=== PATIENT | male | born 1965 | race Two or more races ===

== ENCOUNTER 2023-01-12 10:02 | Emergency (ER) | payer MEDICAID ==
[~2023-01-12] VITALS: Ht 180.3 cm; Wt 108.3 kg
[2023-01-12 15:05] VITALS: BP 140/80
[2023-01-12] MEDS ORDERED: ACYCLOVIR 400 MG TAB PO ONE (15:30)
[2023-01-12] MEDS ORDERED: ACYC-161 PO (15:41)
== END 2023-01-12 15:56 | disposition home or self-care (01) ==
LOC: ER 10:02
DX: B02.9 Zoster without complications (principal); E11.9 Type 2 diabetes mellitus without complications
CPT/HCPCS: 82962

== ENCOUNTER 2024-10-08 18:54 | Emergency (ER) | payer MEDICAID ==
[~2024-10-08] VITALS: Ht 180.3 cm; Wt 104.7 kg
[~2024-10-08 18:54] MED LIST: ACYC400T16 PO
--- NOTE | 2024-10-08 19:57 | ED.PDOC ---
History of Present Illness HPI Comments 59 y/o M, with a Hx of obesity and DM, presents with c/o laceration to 3rd digit on right hand, today. Patient comments on cutting his hand with a [place] cutter by accident, earlier, today. He denies any weakness, numbness, tingling, lightheadedness, or other associated symptoms or modifiers at this time. Chief Complaint: Laceration Time Seen by MD: 19:20 Primary Care Provider: SANTIAGO Reviewed Notes: Nurses Notes, Medications, Allergies Allergies: Coded Allergies: NO KNOWN ALLERGIES (Unverified , 01/12/23) Home Meds Active Scripts Acyclovir (ZOVIRAX TABLET) 400 Mg Tb, 2 TAB PO 5XD for 7 Days, #70 TAB 0 Refills Pharmacy to use 800mg tablet p.o. 5 times a day for 7 days. Dispense sufficient quantity Prov:TRENA PEREZ [employer]NA[employer] 01/12/23 Information Source: Patient Mode of Arrival: Ambulatory Severity: Moderate Timing: Hours Duration: Since onset Prehospital treatment: None Past Medical History PAST MEDICAL HISTORY: DM Past Medical History (Other): obesity Surgical History: Denies all surgeries Family History Family History: Reviewed,noncontributory to illness Social History Smoker: Non-Smoker Alcohol: Denies ETOH Use Drugs: Denies Drug Use Lives In: Home Integumetry: reports: laceration ( 3rd digit on right hand ) All Other Systems: Reviewed and Negative (negative unless otherwise stated above or in HPI) Physical Exam General Appearance: No Apparent Distress, Obese HEENT: Normal ENT Inspection, Pharynx Normal, TMs Normal Neck: Full Range of Motion, Non-Tender, Normal, Normal Inspection Respiratory: Chest Non-Tender, Lungs Clear, No Accessory Muscle Use, No Respiratory Distress, Normal Breath Sounds Cardiovascular: No Edema, No JVD, No Murmur, No Gallop, Normal Peripheral Pulses, Regular Rate/Rhythm Breast Exam: Deferred Gastrointestinal: No Organomegaly, Non Tender, No Pulsatile Mass, Normal Bowel Sounds, Soft Genitalia: Deferred Pelvic: Deferred Rectal: Deferred Extremities: No calf tenderness, Normal capillary refill, Normal inspection, Normal range of motion, Non-tender, No pedal edema Musculoskeletal : Apperance: Normal Neurologic: Alert, 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 Was a procedure done?: No Differential Dx Considerations may include: laceration, avulsion, soft tissue foreign body, neurovascular injury, tendon injury, fracture X-Ray, Labs, Meds, VS Vital Signs Date Time Temp Pulse Resp B/P (MAP) Pulse Ox O2 Delivery O2 Flow Rate FiO2 10/08/24 20:25 86 18 94 Room Air 10/08/24 20:21 86 18 94 Room Air* 0 21 10/08/24 20:10 99.0 86 145/88 (107) 94 99.0 10/08/24 19:02 98.8 84 18 163/95 (117) 96 Current Medications Medications (Trade) Dose Ordered Sig/Danii Route Start Time Stop Time Status Last Admin Diphtheria/ Tetanus/Acell Pertussis (Boostrix T-Dap) 0.5 ml ONCE ONCE IM 10/08/24 19:30 10/08/24 19:31 DC 10/08/24 20:21 Acetaminophen/ Hydrocodone Bitart ([place] 5/325MG Tab) 1 tab ONCE ONCE PO 10/08/24 19:30 10/08/24 19:31 DC 10/08/24 20:20 Neomycin/ Polymyxin/ Bacitracin (Triple Antibiotic) 1 applic ONCE ONCE TOP 10/08/24 19:30 10/08/24 19:31 DC 10/08/24 20:22 Time of 1ST Reevaluation: 19:50 Reevaluation 1ST: Unchanged Time of 2ND Reevaluation: 20:34 Reevaluation 2ND: Improved Patient Education/Counseling: Diagnosis, Treatment, Prognosis, Need For Follow Up Family Education/Counseling: No Family Present Additional Information - I reviewed the following notes from patient's past medical encounters: ED physician note on 01/12/23 - I discussed treatments and results with medical personnel pt has a linear fuyll thickness skin and subcutaneous tissue avulsion. the wound is cleaned and dressed. his Tdap is updated and he will be placed on antibiotic and pain medication Departure 1 Departure Time of Disposition: 20:31 Impression: Primary Impression: Avulsion of skin of finger Qualified Codes: S61.209A - Unspecified open wound of unspecified finger without damage to nail, initial encounter Disposition: HOME / SELF CARE / HOMELESS Condition: Good e-Prescriptions Ibuprofen Micronized (MOTRIN TABLET) 600 Mg Tb 600 MG PO TID PRN, #40 TAB *Black box warning-NSAIDS can increase risk of UT & hypertension, GI irritation, ulceration, bleed, perferation. Do not use post cardiac surgery. Use short duration/lowest effective dose. Prov: EDUARDO MONACO MD 10/08/24 Cephalexin Monohydrate (Cephalexin) 500 Mg Tab 1 TAB PO QID, #40 TAB Prov: EDUARDO MONACO MD 10/08/24 Discharged With: Self Critical Care Note Critical Care Time?: No Stability Stability form required: No Heart Score Heart Score: Heart Score Response (Comments) Value History N/A 0 EKG N/A 0 Age N/A 0 Risk Factors N/A 0 Troponin N/A 0 Total 0 I personally scribed for EDUARDO MONACO MD ([email or web address]) on 10/08/24 at 19:57. Electronically submitted by Sky Warren ([email or web address]). EDUARDO MONACO MD Oct 08, 2024 19:57
[2024-10-08 20:10] VITALS: BP 145/88; TEMP 99
[2024-10-08] MEDS: HYDROcodone-ACET 5/325MG TAB PO ONE (20:20)
[2024-10-08 20:21] VITALS: PULSE 86; RESP 18; O2SAT 94
[2024-10-08] MEDS: TETANUS-DIPTH-ACEL PERTUSSIS 0.5ML SYR Tdap IM ONE (20:21)
[2024-10-08] MEDS: NEOMYCIN-BACITRACIN-POLYM UNITDOSE PKG TOP OINT TOP ONE (20:22)
[2024-10-08 20:25] VITALS: PULSE 86; RESP 18; O2SAT 94
[2024-10-08] MEDS ORDERED: IBU600T PO (20:32)
[2024-10-08] MEDS ORDERED: CEPH500T PO (20:32)
== END 2024-10-08 20:45 | disposition home or self-care (01) ==
LOC: ER 18:54
DX: S61.202A Unspecified open wound of right middle finger without damage to nail, initial encounter (principal); E11.9 Type 2 diabetes mellitus without complications; W26.8XXA Contact with other sharp object(s), not elsewhere classified, initial encounter; Y93.89 Activity, other specified; Y92.89 Other specified places as the place of occurrence of the external cause; Y99.8 Other external cause status
CPT/HCPCS: 90471; 90715

== ENCOUNTER 2024-11-20 18:43 | Emergency (ER) | payer MEDICAID ==
[~2024-11-20] VITALS: Ht 180.3 cm; Wt 96.8 kg
[~2024-11-20 18:43] MED LIST changes: +CEPH500T PO; +IBU600T PO
--- NOTE | 2024-11-20 19:05 | ED.PDOC ---
General HPI Comments 59 year old male came to ER due to hematuria. Patient has history of hy pertension, diabetes, dyslipidemia. States earlier today he noted hematuria when he used the restroom. Denies any dysuria, denies any flank pain or abdominal pain. Denies any history of hematuria or any recent trauma. Chief Complaint: Hematuria Time Seen by MD: 19:05 Primary Care Provider: SANTIAGO Joseph notes: Nurses Notes Allergies: Coded Allergies: NO KNOWN ALLERGIES (Unverified , 01/12/23) Home Meds Active Scripts Ibuprofen Micronized (MOTRIN TABLET) 600 Mg Tb, 600 MG PO TID PRN, #40 TAB *Black box warning-NSAIDS can increase risk of MD & hypertension, GI irritation, ulceration, bleed, perferation. Do not use post cardiac surgery. Use short duration/lowest effective dose. Prov:EDUARDO MONACO MD 10/08/24 Cephalexin Monohydrate (Cephalexin) 500 Mg Tab, 1 TAB PO QID, #40 TAB Prov:EDUARDO MONACO MD 10/08/24 Acyclovir (ZOVIRAX TABLET) 400 Mg Tb, 2 TAB PO 5XD for 7 Days, #70 TAB 0 Refills Pharmacy to use 800mg tablet p.o. 5 times a day for 7 days. Dispense sufficient quantity Prov:TRENA PEREZ [facility] 01/12/23 Information Source: Patient Mode of Arrival: Ambulatory Severity: Moderate Inability to void: Mild Timing: Hours Duration: Since onset Prehospital treatment: None Onset: Spontaneous Symptoms: Hematuria History of: None Location: None associated signs and symptoms: Hematuria Past Medical History PAST MEDICAL HISTORY: DM, High Lipids, HTN Surgical History: Denies all surgeries Family History Family History: Reviewed,noncontributory to illness Social History Smoker: Non-Smoker Alcohol: Occasionally Drugs: Denies Drug Use Lives In: Home Constitutional: denies: chills, diaphoresis, fatigue, fever, malaise, sweats, weakness, others EENTM: denies: blurred vision, double vision, ear bleeding, ear discharge, ear drainage, ear pain, ear ringing, eye pain, eye redness, hearing loss, mouth pain, mouth swelling, nasal discharge, nose bleeding, nose congestion, nose pain, photophobia, tearing, throat pain, throat swelling, voice changes, others Respiratory: denies: cough, hemoptysis, orthopnea, SOB at rest, shortness of breath, SOB with excertion, stridor, wheezing, others Cardiovascular: denies: chest pain, dizzy spells, diaphoresis, Dyspnea on exertion, edema, irregular heart beat, left arm pain, lightheadedness, palpitations, PND, syncope, others Gastrointestinal: denies: abdomen distended, abdominal pain, blood streaked bowels, constipated, diarrhea, dysphagia, difficulty swallowing, hematemesis, me daphne, nausea, poor appetite, poor fluid intake, rectal bleeding, rectal pain, vomiting, others Genitourinary: reports: hematuria; denies: burning, dysuria, flank pain, frequency, incontinence, penile discharge, penile sore, pain, testicle pain, testicle swelling, urgency, others Neurological: denies: dizziness, fainting, headache, left sided numbness, left sided weakness, numbness, paresthesia, pre-existing deficit, right sided numbness, right sided weakness, seizure, speech problems, tingling, tremors, weakness, others Musculoskeletal: denies: back pain, gout, joint pain, joint swelling, muscle pain, muscle stiffness, neck pain, others Integumetry: denies: bruises, change in color, change in hair/nails, dryness, laceration, lesions, lumps, rash, wounds, others Allergic/Immunocompromised: denies: Difficulty Healing, Frequent Infections, Hives, Itching, others Hematologic/Lymphatic: denies: anemia, blood clots, easy bleeding, easy bruising, swollen glands, others Endocrine: denies: excessive hunger, excessive sweating, excessive thirst, excessive urination, flushing, intolerance to cold, intolerance to heat, unexplained weight gain, unexplained weight loss, others Psychiatric: denies: anxiety, bipolar disorder, depression, hopeless, panic disorder, schizophrenia, sleepless, suicidal, others Physical Exam General Appearance: No Apparent Distress, Normal HEENT: Normal ENT Inspection, Pharynx Normal, TMs Normal Neck: Full Range of Motion, Non-Tender, Normal, Normal Inspection Respiratory: Chest Non-Tender, Lungs Clear, No Accessory Muscle Use, No Respiratory Distress, Normal Breath Sounds Cardiovascular: No Edema, No JVD, No Murmur, No Gallop, Normal Peripheral Pulses, Regular Rate/Rhythm Breast Exam: Deferred Gastrointestinal: No Organomegaly, Non Tender, No Pulsatile Mass, Normal Bowel Sounds, Soft Genitalia: Deferred Pelvic: Deferred Rectal: Deferred Extremities: No calf tenderness, Normal capillary refill, Normal inspection, Normal range of motion, Non-tender, No pedal edema Musculoskeletal : Apperance: Normal Neurologic: Alert, 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 Was a procedure done?: No Differential Diagnosis Kidney stone (Female): N/A Kidney stone (Male): Pyelonephritis, Renal failure, Strain, Urinary obstruction, Urolithiasis, Renal infarction, Urinary tract infection, Other (renal mass) Urinary Problem (Male): Urethritis, Urinary Retention, Urolithiasis, UTI X-Ray, Labs, Meds, VS Vital Signs Date Time Temp Pulse Resp B/P (MAP) Pulse Ox O2 Delivery O2 Flow Rate FiO2 11/20/24 19:04 97.9 93 20 159/104 (122) 96 97.9 Lab Test 11/20/24 19:08 11/20/24 19:00 Range/Units White Blood Count 9.4 4.4-10.8 10^3/uL Red Blood Count 6.50 H 4.5-5.90 10^6/uL Hemoglobin 18.4 H 13.5-17.5 g/dL Hematocrit 54.7 H 41.0-53.0 % Mean Corpuscular Volume 84.2 80.0-100.0 fL Mean Corpuscular Hemoglobin 28.3 28.0-32.0 pg Mean Corpuscular Hemoglobin Concent 33.6 32.0-36.0 g/dL Red Cell Distribution Width 15.7 H 11.8-14.3 % Platelet Count 255 140-450 10^3/uL Mean Platelet Volume 7.8 6.9-10.8 fL Neutrophils (%) (Auto) 50.0 37.0-80.0 % Lymphocytes (%) (Auto) 40.2 10.0-50.0 % Monocytes (%) (Auto) 6.7 0.0-12.0 % Eosinophils (%) (Auto) 2.7 0.0-7.0 % Basophils (%) (Auto) 0.4 0.0-2.0 % Neutrophils # (Auto) 4.7 1.6-8.6 10 ^3/uL Lymphocytes # (Auto) 3.8 0.4-5.4 10 ^3/uL Monocytes # (Auto) 0.6 0-1.3 10 ^3/uL Eosinophils # (Auto) 0.2 0-0.8 10 ^3/uL Basophils # (Auto) 0 0-0.2 10 ^3/uL Nucleated Red Blood Cells 0.2 % Sodium Level 140 136-145 mmol/L Potassium Level 3.3 L 3.5-5.1 mmol/L Chloride Level 110 H 98-107 mmol/L Carbon Dioxide Level 23 20-31 mmol/L Anion Gap 7 5-15 Blood Urea Nitrogen 15 9-23 mg/dL Creatinine 0.98 0.700-1.30 mg/dL Glomerular Filtration Rate Calc 90 >90 mL/min BUN/Creatinine Ratio 15.3 10.0-20.0 Serum Glucose 97 74-106 mg/dL Calcium Level 9.7 8.7-10.4 mg/dL Total Bilirubin 0.9 0.2-1.0 mg/dL Aspartate Amino Transferase (AST) 18 13-40 U/L Alanine Aminotransferase (ALT) 23 7-40 U/L Alkaline Phosphatase 55 46-116 U/L Total Protein 7.7 5.7-8.2 g/dL Albumin 4.6 3.2-4.8 g/dL Urine Color Light-red Yellow Urine Clarity Turbid H Clear Urine pH 6.0 5.0-9.0 Urine Specific [place] 1.020 1.001-1.035 Urine Protein Trace H Negative Urine Ketones Negative Negative Urine Blood 3+ H Negative /uL Urine Nitrite Negative Negative Urine Bilirubin Negative Negative Urine Urobilinogen 3 H Negative mg/dL Urine Leukocyte Esterase 1+ Negative /uL Urine RBC 7268 0 - 3 /hpf Urine Microscopic WBC 7 H 0-3 /HPF Urine Squamous Epithelial Cells None seen <5 /hpf Urine Bacteria None seen None Seen /hpf Urine Glucose 4+ H Normal mg/dL Exam: CT CT AB PEL WO CON-NO ORAL OR IV History: hematuria Comparison Study: None Technique: Multidetector spiral CT of the abdomen was performed from lung bases to pubic symphysis. Imaging was performed without IV contrast. Axial, coronal and sagittal multiplanar reformats were obtained from the axial data set by the technologist. Radiation Dose : 1. Abdomen/Pelvis: CTDIvol 20 mGy, DLP 1040 mGy*cm. Findings: Evaluation of solid organs is limited due to lack of intravenous contrast use. Lung Bases: No acute or significant lung base finding. Normal heart size. No pleural or pericardial effusion. Liver: Liver measures 20 cm in craniocaudal length. No focal liver lesions are seen. Gallbladder and Biliary Tree: Unremarkable Spleen: Unremarkable Pancreas: The pancreas is grossly normal in appearance. Adrenal Glands: Unremarkable Kidneys: Right kidney is unremarkable. There is a heterogeneous mass at the left renal pelvis measuring 6.4 x 7.5 x 8.0 cm (AP by TV by cc). Bladder: Mild wall thickening in the urinary bladder is likely due to poor distention. Bowel: The stomach is grossly normal in appearance. Small bowel and colon are normal in caliber and distribution. The appendix is not visualized; however, no secondary findings of acute appendicitis identified. Ascites: Absent Lymphadenopathy: No mesenteric, retroperitoneal or periportal lymphadenopathy. Abdominal Wall and Mesentery: Moderate size fat containing left inguinal hernia. Vasculature: The visualized abdominal aorta is normal in size and caliber. Evaluation of abdominal and pelvic vessels is limited due to lack of intravenous contrast. Pelvic Organs: Mild prostatic calcification. Musculoskeletal: Mild multilevel degenerative changes in the spine. No evidence of destructive osseous lesions. IMPRESSION: 1. Heterogeneous left renal mass is concerning neoplasm. Recommend contrast- enhanced CT. 2. Moderate size fat containing left inguinal hernia. 3. Mild hepatomegaly. Radiation optimization: All CT scans at this facility use at least one of these dose optimization techniques: automated exposure control mA and/or kV adjustment per patient size (includes targeted exams where dose is matched to cl inical indication) or iterative reconstruction. Time of 1ST Reevaluation: 19:02 Reevaluation 1ST: Unchanged Patient Education/Counseling: Diagnosis, Treatment, Prognosis, Need For Follow Up Family Education/Counseling: No Family Present Additional Information -Reviewed patient's previous visit(s): ED physician notes last Oct 08, 2024 - The following tests were ordered, and results were reviewed by me: - Additional information was gathered from interviewing the following independent Historian: - I reviewed and agreed with the following test results read by other provider: - I discussed treatments and results with medical personnel and: patient Comprehensive systems review obtained and negative except for what is stated in the HPI. pt reports that he has Dr England and can get an appointment with him easily and would like to go home. i called Dr England and he will see pt on friday at 9AM Departure 1 Departure Time of Disposition: 20:30 Impression: Primary Impression: Hematuria Qualified Codes: R31.0 - Gross hematuria Additional Impression: Renal mass, left Disposition: HOME / SELF CARE / HOMELESS Condition: Good Additional Instructions: follow up with Dr England at his office on Friday at 9AM Discharged With: Self Critical Care Note Critical Care Time?: No Stability Stability form required: No Heart Score Heart Score: Heart Score Response (Comments) Value History N/A 0 EKG N/A 0 Age N/A 0 Risk Factors N/A 0 Troponin N/A 0 Total 0 I personally scribed for EDUARDO MONACO MD ([email or web address]) on 11/20/24 at 19:05. Electronically submitted by Romeo Gallardo ([employer]). I personally scribed for EDUARDO MONACO MD ([email or web address]) on 11/20/24 at 19:07. Electronically submitted by Romeo Gallardo ([employer]). I personally scribed for EDUARDO MONACO MD ([email or web address]) on 11/20/24 at 19:22. Electronically submitted by Romeo Gallardo ([employer]). I personally scribed for EDUARDO MONACO MD ([email or web address]) on 11/20/24 at 20:23. Electronically submitted by Romeo Gallardo ([employer]). EDUARDO MONACO MD Nov 20, 2024 19:05
--- NOTE | 2024-11-20 19:45 | DVH ---
Exam: CT CT AB PEL WO CON-NO ORAL OR IV History: hematuria Comparison Study: None Technique: Multidetector spiral CT of the abdomen was performed from lung bases to pubic symphysis. Imaging was performed without IV contrast. Axial, coronal and sagittal multiplanar reformats were ob tained from the axial data set by the technologist. Radiation Dose : 1. Abdomen/Pelvis: CTDIvol 20 mGy, DLP 1040 mGy*cm. Findings: Evaluation of solid organs is limited due to lack of intravenous contrast use. Lung Bases: No acute or significant lung base finding. Normal heart size. No pleural or pericardial effusion. Liver: Liver measures 20 cm in craniocaudal length. No focal liver lesions are seen. Gallbladder and Biliary Tree: Unremarkable Spleen: Unremarkable Pancreas: The pancreas is grossly normal in appearance. Adrenal Glands: Unremarkable Kidneys: Right kidney is unremarkable. There is a heterogeneous mass at the left renal pelvis measu ring 6.4 x 7.5 x 8.0 cm (AP by TV by cc). Bladder: Mild wall thickening in the urinary bladder is likely due to poor distention. Bowel: The stomach is grossly normal in appearance. Small bowel and colon are normal in caliber and d istribution. The appendix is not visualized; however, no secondary findings of acute appendicitis id entified. Ascites: Absent Lymphadenopathy: No mesenteric, retroperitoneal or periportal lymphadenopathy. Abdominal Wall and Mesentery: Moderate size fat containing left inguinal hernia. Vasculature: The visualized abdominal aorta is normal in size and caliber. Evaluation of abdominal a nd pelvic vessels is limited due to lack of intravenous contrast. Pelvic Organs: Mild prostatic calcification. Musculoskeletal: Mild multilevel degenerative changes in the spine. No evidence of destructive osseou s lesions. IMPRESSION: 1. Heterogeneous left renal mass is concerning neoplasm. Recommend contrast-enhanced CT. 2. Moderate size fat containing left inguinal hernia. 3. Mild hepatomegaly. Radiation optimization: All CT scans at this facility use at least one of these dose optimization mata hniques: automated exposure control mA and/or kV adjustment per patient size (includes targeted exam s where dose is matched to clinical indication) or iterative reconstruction.
[2024-11-20 19:50] LABS: Basophils # (auto) 0 10 ^3/uL (0-0.2); Basophils % (auto) 0.4 % (0.0-2.0); Eosinophils # (auto) 0.2 10 ^3/uL (0-0.8); Eosinophils % (auto) 2.7 % (0.0-7.0); Hematocrit 54.7 % (41.0-53.0); Hemoglobin 18.4 g/dL (13.5-17.5); Lymphocytes # (auto) 3.8 10 ^3/uL (0.4-5.4); Lymphocytes % (auto) 40.2 % (10.0-50.0); Mean Corpuscular Hemoglobin 28.3 pg (28.0-32.0); Mean Corpuscular Hgb Conc. 33.6 g/dL (32.0-36.0); Mean Corpuscular Volume 84.2 fL (80.0-100.0); Monocytes # (auto) 0.6 10 ^3/uL (0-1.3); Monocytes % (auto) 6.7 % (0.0-12.0); Neutrophils # (auto) 4.7 10 ^3/uL (1.6-8.6); Nucleated Red Blood Cells % 0.2 %; Platelet Count (auto) 255 10^3/uL (140-450); Red Cell Distribution Width 15.7 % (11.8-14.3); White Blood Cell 9.4 10^3/uL (4.4-10.8)
[2024-11-20 19:50] LABS: Urine Bacteria None Seen /hpf (None Seen)
[2024-11-20 20:03] LABS: Alanine Aminotransferase 23 U/L (7-40); Albumin 4.6 g/dL (3.2-4.8); Alkaline Phosphatase 55 U/L (46-116); Anion Gap 7 (5-15); Aspartate Aminotransferase 18 U/L (13-40); BUN/Creatinine Ratio 15.3 (10.0-20.0); Bilirubin, Total 0.9 mg/dL (0.2-1.0); Blood Urea Nitrogen 15 mg/dL (9-23); Calcium 9.7 mg/dL (8.7-10.4); Carbon Dioxide 23 mmol/L (20-31); Glucose 97 mg/dL (74-106); Sodium 140 mmol/L (136-145); Total Protein 7.7 g/dL (5.7-8.2)
[2024-11-20 20:06] LABS: Chloride 110 mmol/L (98-107); Potassium 3.3 mmol/L (3.5-5.1)
[2024-11-20 20:10] LABS: Urine Blood 3+ /uL (Negative); Urine Clarity Turbid (Clear); Urine Color Light-Red (Yellow); Urine Protein, UAD TRACE (Negative); Urine Squamous Epithelial Cell None Seen /hpf (<5); Urine Urobilinogen 3 mg/dL (Negative); Urine WBC 7 /HPF (0-3)
[2024-11-20 20:54] VITALS: BP 147/92; PULSE 83; RESP 19; TEMP 99; O2SAT 95
== END 2024-11-20 20:54 | disposition home or self-care (01) ==
LOC: ER 18:46
DX: N28.89 Other specified disorders of kidney and ureter (principal); I10 Essential (primary) hypertension; E11.9 Type 2 diabetes mellitus without complications; E78.5 Hyperlipidemia, unspecified; Z79.899 Other long term (current) drug therapy
CPT/HCPCS: 36415; 74176; 80053; 81001; 85025

== ENCOUNTER 2025-03-09 00:03 | Emergency (ER) | payer MEDICAID ==
[~2025-03-09] VITALS: Ht 180.3 cm; Wt 97.3 kg
[2025-03-09 01:56] LABS: Urine Protein, UAD 1+ (Negative)
[2025-03-09 02:01] LABS: Hematocrit 54.9 % (41.0-53.0); Hemoglobin 18.8 g/dL (13.5-17.5); Mean Corpuscular Hemoglobin 28.8 pg (28.0-32.0); Mean Corpuscular Volume 84.1 fL (80.0-100.0); Nucleated Red Blood Cells % 0.1 %
[2025-03-09 02:10] LABS: Chloride 105 mmol/L (98-107); Potassium 3.9 mmol/L (3.5-5.1); Sodium 139 mmol/L (136-145)
[2025-03-09 02:11] LABS: Anion Gap 9 (5-15); Calcium 9.8 mg/dL (8.7-10.4); Carbon Dioxide 25 mmol/L (20-31)
[2025-03-09 02:16] LABS: BUN/Creatinine Ratio 8.9 (10.0-20.0); Blood Urea Nitrogen 10 mg/dL (9-23); Glucose 91 mg/dL (74-106)
[2025-03-09 02:20] VITALS: BP 156/94; PULSE 79; RESP 18; TEMP 99.2; O2SAT 97
[2025-03-09] MEDS: IOHEXOL 300 MG/ML 100ML BOTTLE IJ ONE (02:36)
--- NOTE | 2025-03-09 03:38 | ED.PDOC ---
History of Present Illness HPI Comments 59-year-old male complaining of blood in his urine. States he had four episodes of bloody urination today. Reports a history of stage IV kidney cancer. Says he has appointment on the for nephrectomy. Wants to make sure that his cancer has not spread. Has been having some mild left lower quadrant abdominal pain Chief Complaint: Urinary Time Seen by MD: 00:43 Primary Care Provider: SANTIAGO Reviewed Notes: Nurses Notes Allergies: Coded Allergies: NO KNOWN ALLERGIES (Unverified , 01/12/23) Home Meds Active Scripts Ibuprofen Micronized (MOTRIN TABLET) 600 Mg Tb, 600 MG PO TID PRN, #40 TAB *Black box warning-NSAIDS can increase risk of AL & hypertension, GI irritation, ulceration, bleed, perferation. Do not use post cardiac surgery. Use short duration/lowest effective dose. Prov:EDUARDO MONACO MD 10/08/24 Cephalexin Monohydrate (Cephalexin) 500 Mg Tab, 1 TAB PO QID, #40 TAB Prov:EDUARDO MONACO MD 10/08/24 Acyclovir (ZOVIRAX TABLET) 400 Mg Tb, 2 TAB PO 5XD for 7 Days, #70 TAB 0 Refills Pharmacy to use 800mg tablet p.o. 5 times a day for 7 days. Dispense sufficient quantity Prov:TRENA PEREZ [facility] 01/12/23 Information Source: Patient Mode of Arrival: Ambulatory Past Medical History PAST MEDICAL HISTORY: DM, High Lipids, HTN Surgical History: Denies all surgeries Family History Family History: Reviewed,noncontributory to illness Social History Smoker: Non-Smoker Alcohol: Occasionally Drugs: Denies Drug Use Lives In: Home Constitutional: denies: chills, diaphoresis, fatigue, fever, malaise, sweats, weakness, others EENTM: denies: blurred vision, double vision, ear bleeding, ear discharge, ear drainage, ear pain, ear ringing, eye pain, eye redness, hearing loss, mouth pain, mouth swelling, nasal discharge, nose bleeding, nose congestion, nose pain, photophobia, tearing, throat pain, throat swelling, voice changes, others Respiratory: denies: cough, hemoptysis, orthopnea, SOB at rest, shortness of breath, SOB with excertion, stridor, wheezing, others Cardiovascular: denies: chest pain, dizzy spells, diaphoresis, Dyspnea on exertion, edema, irregular heart beat, left arm pain, lightheadedness, palpitations, PND, syncope, others Gastrointestinal: denies: abdomen distended, abdominal pain, blood streaked bowels, constipated, diarrhea, dysphagia, difficulty swallowing, hematemesis, melena, nausea, poor appetite, poor fluid intake, rectal bleeding, rectal pain, vomiting, others Genitourinary: denies: burning, dysuria, flank pain, frequency, hematuria, incontinence, penile discharge, penile sore, pain, testicle pain, testicle swelling, urgency, others Neurological: denies: dizziness, fainting, headache, left sided numbness, left sided weakness, numbness, paresthesia, pre-existing deficit, right sided numbness, right sided weakness, seizure, speech problems, tingling, tremors, weakness, others Musculoskeletal: denies: back pain, gout, joint pain, joint swelling, muscle pain, muscle stiffness, neck pain, others Integumetry: denies: bruises, change in color, change in hair/nails, dryness, laceration, lesions, lumps, rash, wounds, others Allergic/Immunocompromised: denies: Difficulty Healing, Frequent Infections, Hives, Itching, others Hematologic/Lymphatic: denies: anemia, blood clots, easy bleeding, easy bruising, swollen glands, others Endocrine: denies: excessive hunger, excessive sweating, excessive thirst, excessive urination, flushing, intolerance to cold, intolerance to heat, unexplained weight gain, unexplained weight loss, others Psychiatric: denies: anxiety, bipolar disorder, depression, hopeless, panic disorder, schizophrenia, sleepless, suicidal, others Physical Exam General Appearance: No Apparent Distress, Normal HEENT: Normal ENT Inspection, Pharynx Normal, TMs Normal Neck: Full Range of Motion, Non-Tender, Normal, Normal Inspection Respiratory: Chest Non-Tender, Lungs Clear, No Accessory Muscle Use, No Respiratory Distress, Normal Breath Sounds Cardiovascular: No Edema, No JVD, No Murmur, No Gallop, Normal Peripheral Pulses, Regular Rate/Rhythm Breast Exam: Deferred Gastrointestinal: No Organomegaly, Non Tender, No Pulsatile Mass, Normal Bowel Sounds, Soft Genitalia: Deferred Pelvic: Deferred Rectal: Deferred Extremities: No calf tenderness, Normal capillary refill, Normal inspection, Normal range of motion, Non-tender, No pedal edema Musculoskeletal : Apperance: Normal Neurologic: Alert, procurement director II-XII nml as Tested, No Motor Deficits, Normal Affect, Normal Mood, No Sensory Deficits Cerebellar Function: Normal Reflexes: Normal Skin: Dry, Normal Color, Warm Lymphatic: No Adenopathy Was a procedure done? Was a procedure done?: No Differential Dx Considerations may include: na X-Ray, Labs, Meds, VS Vital Signs Date Time Temp Pulse Resp B/P (MAP) Pulse Ox O2 Delivery O2 Flow Rate FiO2 03/09/25 02:24 Room Air* 0 21 03/09/25 02:20 99.2 79 18 156/94 (114) 97 99.2 03/09/25 00:35 98.5 83 18 152/101 (118) 100 98.5 Lab Test 03/09/25 01:43 03/09/25 00:45 Range/Units White Blood Count 8.9 4.4-10.8 10^3/uL Red Blood Count 6.53 H 4.5-5.90 10^6/uL Hemoglobin 18.8 H 13.5-17.5 g/dL Hematocrit 54.9 H 41.0-53.0 % Mean Corpuscular Volume 84.1 80.0-100.0 fL Mean Corpuscular Hemoglobin 28.8 28.0-32.0 pg Mean Corpuscular Hemoglobin Concent 34.2 32.0-36.0 g/dL Red Cell Distribution Width 14.8 H 11.8-14.3 % Platelet Count 301 140-450 10^3/uL Mean Platelet Volume 7.2 6.9-10.8 fL Neutrophils (%) (Auto) 58.7 37.0-80.0 % Lymphocytes (%) (Auto) 31.7 10.0-50.0 % Monocytes (%) (Auto) 6.7 0.0-12.0 % Eosinophils (%) (Auto) 2.1 0.0-7.0 % Basophils (%) (Auto) 0.8 0.0-2.0 % Neutrophils # (Auto) 5.2 1.6-8.6 10 ^3/uL Lymphocytes # (Auto) 2.8 0.4-5.4 10 ^3/uL Monocytes # (Auto) 0.6 0-1.3 10 ^3/uL Eosinophils # (Auto) 0.2 0-0.8 10 ^3/uL Basophils # (Auto) 0.1 0-0.2 10 ^3/uL Nucleated Red Blood Cells 0.1 % Sodium Level 139 136-145 mmol/L Potassium Level 3.9 3.5-5.1 mmol/L Chloride Level 105 98-107 mmol/L Carbon Dioxide Level 25 20-31 mmol/L Anion Gap 9 5-15 Blood Urea Nitrogen 10 9-23 mg/dL Creatinine 1.12 0.700-1.30 mg/dL Glomerular Filtration Rate Calc 77 >90 mL/min BUN/Creatinine Ratio 8.9 L 10.0-20.0 Serum Glucose 91 74-106 mg/dL Calcium Level 9.8 8.7-10.4 mg/dL Urine Color Brown H Yellow Urine Clarity Turbid H Clear Urine pH 5.5 5.0-9.0 Urine Specific [place] 1.017 1.001-1.035 Urine Protein 1+ H Negative Urine Ketones Negative Negative Urine Blood 3+ H Negative /uL Urine Nitrite Negative Negative Urine Bilirubin Negative Negative Urine Urobilinogen Normal Negative mg/dL Urine Leukocyte Esterase Negative Negative /uL Urine RBC 50 0 - 3 /hpf Urine Microscopic WBC 4 H 0-3 /HPF Urine Squamous Epithelial Cells Few <5 /hpf Urine Bacteria Few H None Seen /hpf Urine Mucus Few None Seen Urine Glucose 4+ H Normal mg/dL X-Ray, Labs, Meds, VS Comment Imaging: CT abdomen and pelvis: Pending results Laboratory: Labs reviewed and interpreted by this provider. No significant abnormalities noted. Patient has prior medical visits reviewed. Med reconciliation performed Vital signs reviewed Patient left AMA, did not want to wait for CT results. Time of 1ST Reevaluation: 03:38 Reevaluation 1ST: Unchanged Patient Education/Counseling: Diagnosis, Treatment Family Education/Counseling: Diagnosis SEPSIS Sepsis Screen Date sepsis recognized/suspect: Mar 09, 2025 Time Sepsis recognized/suspect: 34 Recent Procedure: No On Antibiotic Therapy: No Respiratory Rate >20: No Heart Rate >90: No Temp<36 C (96.8 F) or >38.3 C: No SBP <90 or MAP <65 mmHG: No New Acute Mental Status Change: No Is the patient on CPAP, BIPAP,: No Physician Orders Ct Ab Pel With Iv Con Only (03/09/25 01:17) Vital Signs Date Time Temp Pulse Resp B/P (MAP) Pulse Ox O2 Delivery O2 Flow Rate FiO2 03/09/25 02:24 Room Air* 0 21 03/09/25 02:20 99.2 79 18 156/94 (114) 97 99.2 03/09/25 00:35 98.5 83 18 152/101 (118) 100 98.5 Laboratory Tests Test 03/09/25 01:43 White Blood Count 8.9 10^3/uL (4.4-10.8) Departure 1 Departure Time of Disposition: 03:36 Impression: Primary Impression: Renal mass, left Disposition: 07 LEFT AWOL/ELOPED Condition: Fair Critical Care Note Critical Care Time?: No Stability Stability form required: No Heart Score Heart Score: Heart Score Response (Comments) Value History N/A 0 EKG N/A 0 Age N/A 0 Risk Factors N/A 0 Troponin N/A 0 Total 0 HALLE STEINBERG [employer] Mar 09, 2025 03:38
--- NOTE | 2025-03-09 04:26 | DVH ---
Exam: CT CT AB PEL WITH IV CON ONLY History: Hematuria Comparison Study: CT scan of the abdomen pelvis dated 11/20/2024 Contrast: Type of contrast: 524. Omnipaque 300 Contrast injected: 100 cc Contrast wasted: 0 TECHNIQUE: CT scan of the abdomen pelvis was performed with intravenous contrast. Coronal and sagitt al reformatted images are provided. Radiation Dose Information: CT Dose: CTDI volume is 1071.17 mGy. Dose-length product is 1063.89 mGy*cm FINDINGS: Lung Bases: No acute or significant lung base finding. Normal heart size. No pleural or pericardial effusion. Liver: The liver measures 20.1 cm in length. Diffusely hypoattenuating liver parenchyma consistent wi th hepatic steatosis. No focal lesions. Normal hepatic vascular enhancement. Gallbladder and Biliary Tree: The gallbladder is unremarkable. No biliary ductal dilatation. Spleen: Unremarkable Pancreas: The pancreas is normal in appearance without focal lesions or abnormal enhancement. Adrenal Glands: Unremarkable Kidneys: There is a heterogeneously enhancing mass in the left renal pelvis which measures 6.8 by 7.2 by 8.1 cm. The mass compresses but does not appear to invade the left renal vein. Mass is not signi ficantly changed in size as compared to prior CT from 11/20/2024. There is mild left hydronephrosis d ue to the mass. There is left perinephric fat stranding. There is no intrarenal calculi. Right kidn ey is unremarkable. Urinary bladder: Unremarkable. Bowel: The stomach is grossly normal in appearance. Small bowel and colon are normal in caliber and d istribution. The appendix is not visualized; however, no secondary findings of acute appendicitis id entified. Peritoneum: No pneumoperitoneum. No ascites. Lymphadenopathy: No mesenteric, retroperitoneal or periportal lymphadenopathy. Abdominal Wall and Mesentery: Unremarkable. Vasculature: The visualized abdominal aorta is normal in size and caliber. Abdominal and pelvic vess els demonstrate normal enhancement. Pelvic Organs: Unremarkable Musculoskeletal: No aggressive focal bony lesions, acute fractures or dislocation. Soft tissues: Fat containing left inguinal hernia. IMPRESSION: 1. 8.1 cm left renal heterogeneously enhancing mass highly suspicious for renal malignancy. This is n ot significantly changed in size since prior CT from 11/20/2024. 2. No evidence of metastatic disease in the abdomen or pelvis. 3. Hepatic steatosis and hepatomegaly. 4. Fat containing left inguinal hernia. All CT scans at this medical facility are performed using dose modulation techniques as appropriate t o a performed exam including the following: Automated exposure control was utilized; adjustment of th e MA and/or KV according to patient size; and use of iterative reconstruction technique.
== END 2025-03-09 03:25 | disposition left against medical advice (07) ==
LOC: ER 00:03
DX: N28.89 Other specified disorders of kidney and ureter (principal); I10 Essential (primary) hypertension; E11.9 Type 2 diabetes mellitus without complications; E78.5 Hyperlipidemia, unspecified
CPT/HCPCS: 36415; 74177; 80048; 81001; 85025; 99285; Q9967